=== PATIENT | female | born 1955 | race Caucasian/White ===

== ENCOUNTER 2024-04-19 12:05 | Outpatient (RCR) | payer MEDICARE, BC, SELFPAY | END 2024-04-19 23:59 | disposition home or self-care (01) | LOC: RPT 12:05 | PROVIDERS: ATTENDING PHYSICIAN Physician Assistant Medical; FAMILY PHYSICIAN Physician Assistant | DX: M54.16 Radiculopathy, lumbar region (principal); Z73.6 Limitation of activities due to disability; M79.605 Pain in left leg; M79.604 Pain in right leg | CPT/HCPCS: 72148; 97110; 97140; 97162; 97535 ==

== ENCOUNTER 2024-05-21 14:07 | Outpatient (RCR) | payer MEDICARE, BC, SELFPAY | END 2024-05-21 23:59 | disposition home or self-care (01) | LOC: RPT 14:07 | PROVIDERS: ATTENDING PHYSICIAN Physician Assistant Medical; FAMILY PHYSICIAN Physician Assistant | DX: M54.16 Radiculopathy, lumbar region (principal); Z73.6 Limitation of activities due to disability; M79.605 Pain in left leg; M79.604 Pain in right leg | CPT/HCPCS: 97110; 97140 ==

== ENCOUNTER 2024-05-23 12:14 | Outpatient (RCR) | payer MEDICARE, BC, SELFPAY | END 2024-06-14 08:51 | disposition home or self-care (01) | LOC: RPT 12:14 | PROVIDERS: ATTENDING PHYSICIAN Physician Assistant Medical; FAMILY PHYSICIAN Physician Assistant | DX: M54.16 Radiculopathy, lumbar region (principal); Z73.6 Limitation of activities due to disability; M79.605 Pain in left leg; M79.604 Pain in right leg | CPT/HCPCS: 97110; 97535 ==

== ENCOUNTER → 2024-07-11 11:36 | Outpatient (REF) | payer MEDICARE, BC, SELFPAY | LOC: HWRAD 11:36 | PROVIDERS: ATTENDING PHYSICIAN Family Medicine | DX: E78.2 Mixed hyperlipidemia (principal) | CPT/HCPCS: 75571 ==

== ENCOUNTER → 2024-07-25 08:04 | Outpatient (REF) | payer MEDICARE, BC, SELFPAY | LOC: HWWDC 08:04 | PROVIDERS: ATTENDING PHYSICIAN Family Medicine | DX: Z78.0 Asymptomatic menopausal state (principal); Z12.31 Encounter for screening mammogram for malignant neoplasm of breast | CPT/HCPCS: 77063; 77067; 77080 ==

== ENCOUNTER → 2024-10-25 15:46 | Outpatient (REF) | payer MEDICARE, BC, SELFPAY | LOC: RAD 15:46 | PROVIDERS: ATTENDING PHYSICIAN Family Medicine | DX: M54.50 Low back pain, unspecified (principal) | CPT/HCPCS: 72110 ==